=== PATIENT | male | born 1955 | race Caucasian/White ===

== ENCOUNTER 2019-03-08 14:13 | Outpatient (CLI) | payer MEDICARE, OTHER, SELFPAY ==
--- NOTE | 2019-03-08 14:31 | USCV_ITS ---
Chau Castillo Age: 63 Gender: M : 1955 Exam Date: 03/08/2019 14:33 Ordering Phys: Riki Villarreal DPM Technologist: Liya Almazan [place] [facility] [place]: HISTORY: PROCEDURES: Comparison: none available. Bilateral duplex Venous Insufficiency study of the Deep and Superficial systems was carried out according to normal protocol with the patient in supine positon for deep system and dependent position for the superficial system. Serial compression, augmentation maneuvers, and spectral Doppler flow evaluation were performed. An evaluation for venous insufficiency was also completed. FINDINGS: Evidence of very mild reflux in the deep system only, femoral vein on the right, and common femoral vein on the left. CONCLUSIONS 1. Significant venous reflux of greater than 1000 ms was noted in the right femoral vein and the left common femoral veins 2. No significant venous reflux in the superficial venous system 3. The venous dimensions and depth from the surface are as mentioned above Dr Kris Allen MD [facility] (Electronically Signed) Final Date: 08 March 2019 20:27 S
== END 2019-03-08 14:14 | disposition home or self-care (01) ==
LOC: RAD 14:24
PROVIDERS: Family Provider Nurse Practitioner; PCP Nurse Practitioner; Visit Provider Podiatrist Foot & Ankle Surgery
DX: B35.1 Tinea unguium (principal); I87.2 Venous insufficiency (chronic) (peripheral)
CPT/HCPCS: 93970

== ENCOUNTER 2019-03-15 12:35 | Outpatient (CLI) | payer MEDICARE, OTHER, SELFPAY ==
--- NOTE | 2019-03-15 12:39 | USCV_ITS ---
Chau Castillo Age: 63 Gender: M : 1955 Exam Date: 03/15/2019 12:39 Ordering Phys: Riki Villarreal DPM Technologist: Liya Almazan Exam Location: [facility] – [place] Indication: ONYCHOMYCOSIS OF TOENAIL RIGHT LEFT Brachial 120.00 mmHg Brachial 105.00 mmHg Pressure (mmHg) Waveform Pressure (mmHg) Waveform 124.00 Above Knee 136.00 132.00 Below Knee 152.00 144.00 DESK EDITOR 135.00 125.00 DPA 128.00 1.20 Ankle/Brachial Index 1.13 114.00 Pre-Exercise Toe Pressure 96.00 Pre-Exercise Toe/Brachial Index 0.80 0.95 FINDINGS See measurements listed above. Normal resting ABIs bilaterally Normal resting TBIs bilaterally Normal PVR waveforms bilaterally CONCLUSIONS No significant arterial obstruction, based on the above findings Dr Kris Allen MD [facility] (Electronically Signed) Final Date: 17 March 2019 15:08 S
== END 2019-03-15 12:36 | disposition home or self-care (01) ==
PROVIDERS: Family Provider Nurse Practitioner; PCP Nurse Practitioner; Visit Provider Podiatrist Foot & Ankle Surgery
DX: B35.1 Tinea unguium (principal)
CPT/HCPCS: 93923

== ENCOUNTER → 2020-02-04 13:30 | Outpatient (BNVA) | payer OTHER, MEDICARE, SELFPAY | PROVIDERS: Family Provider Nurse Practitioner; PCP Nurse Practitioner; Visit Provider Internal Medicine | DX: Z01.812 Encounter for preprocedural laboratory examination (principal); Z20.828 Contact with and (suspected) exposure to other viral communicable diseases | CPT/HCPCS: 87635 ==

== ENCOUNTER 2020-02-08 08:04 | Day surgery (SDC) | payer OTHER, SELFPAY ==
[2020-02-05 13:40] VITALS: BMI 24.8
[2020-02-08 08:30] VITALS: BP 129/72; PULSE 67; RESP 18; TEMP 36.5; O2SAT 99
[2020-02-08] MEDS: sodium chloride 0.9% 1,000 ML 30 ML IV (08:43)
--- NOTE | 2020-02-08 09:02 | ANES.PREANE2 ---
Pre-Anesthetic Assessment Pre-Anesthetic Assessment: Height/Weight: Height 1.78 m Weight 78.471 kg Temp Pulse Resp BP Pulse Ox 97.7 F 67 18 129/72 99 02/08/20 08:30 02/08/20 08:30 02/08/20 08:30 02/08/20 08:30 02/08/20 08:30 Preop Diagnosis: d Proposed Procedure: Operation Date: 02/08/20 09:00 Proposed Procedures p EGD/Colon 52423 08358 R13.10(Not Applicable) - Jorge Briscoe MD s Colonoscopy(Not Applicable) - Jorge Briscoe MD Was Beta Jovany taken within 24 hours: N/A Last intake: Intake Last Liquid Date 02/07/20 Last Liquid Time 22:00 Last Solid Date 02/06/20 Last Solid Time 21:00 Social: Social History: No alcohol and No tobacco Exam: Pre-Anes Outpt Exam: alert, oriented x 3, clear to auscultation bilaterally and regular rate & rhythm Airway: Submandibular: WNL Cervical ROM: WNL MP: 2 Dentition: False Pulmonary: Pulmonary: None reported CV/HEM: CV/HEM: None reported : : None reported Hepatic: Hepatic: None reported GI: GI: None reported Metabolic: Metabolic: None reported Musc/skel: Musc/skel: Weakness Anesthetic Plan: ASA status: 2 Anesthesia: MAC Meds/Allergies Current Medications: Current Medications Generic Name Dose Route Start Last Admin Trade Name Freq PRN Reason Stop Dose Admin Sodium Chloride 1,000 mls @ 30 ml s/hr 02/08/20 08:30 02/08/20 08:43 Sodium Chloride 0.9% IV 02/09/20 08:29 30 mls/hr .Q24H TRISTAN Administration PFSH Anesthesia PFSH: Medical History (Updated 01/29/20 @ 09:35 by Jorge Briscoe MD) DJD (degenerative joint disease) Hiatal hernia Social History Smoking and tobacco status: never smoked Alcohol intake: never Data Anesthesia Cardiac Studies: No Data to Display
--- NOTE | 2020-02-08 09:17 | W.PM.OPSUD ---
Surgery/Procedure H&P Update DATE OF PROCEDURE: February 08, 2020 DATE H&P PERFORMED: 01/29/20 PREOP DIAGNOSIS: d PLANNED PROCEDURE: Operation Date: 02/08/20 09:00 Proposed Procedures p EGD/Colon 60261 48421 R13.10(Not Applicable) - Jorge Briscoe MD s Colonoscopy(Not Applicable) - Jorge Briscoe MD
[2020-02-08 09:43] VITALS: BP 101/67; PULSE 63; RESP 18; TEMP 36.3; O2SAT 97
[2020-02-08 10:01] VITALS: BP 94/58; PULSE 59; RESP 18; O2SAT 98
--- NOTE | 2020-02-08 10:20 | ANE.PACU2 ---
Inpatient post-anesthesia follow up: Airway intact: Yes Vital signs: Temperature 97.3 F Pulse Rate 59 Respiratory Rate 18 Blood Pressure 94/58 Pulse Oximetry 98 Oxygen Delivery Me thod Room Air Oxygen Flow Rate Fraction of Inspir ed Oxygen Hydration adequate: Yes Nausea and vomiting: No Pain level: 1 Mental status: Baseline
[2020-02-11 06:43] LABS: H. Pylori / CLO Test Negative
== END 2020-02-08 10:20 | disposition home or self-care (01) ==
PROVIDERS: PCP Nurse Practitioner; Visit Provider Internal Medicine
PROC: 0DJ08ZZ Inspection of Upper Intestinal Tract, Via Natural or Artificial Opening Endoscopic (ICD-10-PCS; CPT 43235; principal; 2020-02-08 09:00)
PROC: 0DJD8ZZ Inspection of Lower Intestinal Tract, Via Natural or Artificial Opening Endoscopic (ICD-10-PCS; CPT 45378; 2020-02-08 09:00)
DX: Z86.010 Personal history of colon polyps (principal); R13.10 Dysphagia, unspecified; K29.70 Gastritis, unspecified, without bleeding; M19.90 Unspecified osteoarthritis, unspecified site
CPT/HCPCS: 12345; 43239; 45378; 87077; J2704; J7030

== ENCOUNTER → 2020-08-29 11:49 | Outpatient (BNVA) | payer MEDICARE, OTHER, SELFPAY | PROVIDERS: PCP Nurse Practitioner; Visit Provider Nurse Practitioner Family | DX: R10.31 Right lower quadrant pain (principal); K57.92 Diverticulitis of intestine, part unspecified, without perforation or abscess without bleeding; R10.32 Left lower quadrant pain | CPT/HCPCS: 80053; 81000; 85025 ==

== ENCOUNTER 2020-09-17 11:01 | Outpatient (CLI) | payer MEDICARE, OTHER, SELFPAY ==
[2020-09-17] MEDS: iohexol 300 mg/mL 50 mL Btl PO (11:36)
[2020-09-17] MEDS: iohexol 300 mg/mL 100 mL Btl IV (12:55)
--- NOTE | 2020-09-17 13:00 | CT_ITS ---
WS: [id number] CT ABDOMEN AND PELVIS WITH CONTRAST HISTORY: R10.31 - Right lower quadrant pain TECHNIQUE: Imaging performed of the abdomen and pelvis with IV contrast. Single phase imaging of the abdomen. Coronal and sagittal reformats are submitted. All CT scans at [facility] use at least one of these dose optimization techniques: automated exposure control; mA and/or kV adjustment per patient size (includes targeted exams where dose is matched to clinical indication); or iterativ e reconstruction. IV CONTRAST: Omnipaque 300; 95 mL IV. Oral contrast: Yes. DLP: 1145.57 mGycm COMPARISON: 07/19/2008 Lower thorax: Scattered irregular opacifications at the lung bases. Greatest at the RIGHT lung base. Normal size. Small hiatal hernia. Liver/biliary system: Normal size with no intrahepatic dilatation. Gallbladder: Normally distended gallbladder. Mild heterogeneity within the lumen of the gallbladder c onsistent with stones. Pancreas: Normal size pancreas and pancreatic duct. No adjacent inflammation. Spleen: Normal size spleen. No mass or infarct. Adrenal glands: Normal. Right kidney: Normal. Left kidney: Normal. Aorta: Mild atherosclerosis with no aneurysm. Lymphadenopathy: None. Free fluid: None. GI tract: Normal appendix. There is some very mild increased soft tissue thickening at the cecum whic h appears to be fecal material. No mass or obstruction. Abdominal wall: Unremarkable abdominal wall. No hernia. Pelvis: No free fluid or adenopathy within the pelvis. Bones: Unremarkable. CT/CT abdomen pelvis w con* [id number] IMPRESSION: 1. Bibasilar opacifications most consistent with pneumonitis and history of Co vid 19. 2. Variable density in the gallbladder lumen is most consistent with cholelith iasis. No evidence for acute cholecystitis. To confirm cholelithiasis consider follow-up ultrasound RIGHT upper quadrant. 3. Normal appendix. 4. No adenopathy or ascites.
== END 2020-09-17 11:02 | disposition home or self-care (01) ==
PROVIDERS: PCP Nurse Practitioner; Visit Provider Nurse Practitioner Family
DX: R10.31 Right lower quadrant pain (principal); R10.32 Left lower quadrant pain
CPT/HCPCS: 74177; Q9967

== ENCOUNTER 2020-11-19 07:06 | Outpatient (CLI) | payer MEDICARE, OTHER, SELFPAY ==
--- NOTE | 2020-11-19 07:15 | US_ITS ---
WS: [id number] RIGHT UPPER QUADRANT ULTRASOUND HISTORY: R10.9 - Unspecified abdominal pain COMPARISON: None available. Liver: 14.2 cm in length. Normal size liver. Very mildly coarsened echotexture throughout the liver. No mass or bile duct dilatation. Gallbladder: Normally distended gallbladder with stones. Largest stone measures 1.3 cm in diameter. N o pericholecystic fluid or gallbladder wall thickening. CBD: 0.4 cm Pancreas: Normal size and echogenicity. Right kidney: 11.8 cm in length. Normal size and echogenicity. No hydronephrosis or mass. Aorta and IVC: Unremarkable abdominal aorta and IVC. No ascites. US/US gall bladder [id number] IMPRESSION: 1. Cholelithiasis without acute cholecystitis. 2. Mild hepatic steatosis.
== END 2020-11-19 07:07 | disposition home or self-care (01) ==
LOC: US 07:08
PROVIDERS: PCP Nurse Practitioner; Visit Provider Nurse Practitioner Family
DX: R10.9 Unspecified abdominal pain (principal); K80.20 Calculus of gallbladder without cholecystitis without obstruction; K76.0 Fatty (change of) liver, not elsewhere classified
CPT/HCPCS: 76705

== ENCOUNTER → 2022-07-29 14:35 | Outpatient (BNVA) | payer MEDICARE, OTHER, SELFPAY | PROVIDERS: PCP Nurse Practitioner; Visit Provider Nurse Practitioner Family | DX: M25.511 Pain in right shoulder (principal) | CPT/HCPCS: 73030 ==

== ENCOUNTER 2022-08-26 10:42 | Outpatient (CLI) | payer MEDICARE, OTHER, SELFPAY ==
--- NOTE | 2022-08-26 11:00 | MR_ITS ---
WS: [id number] MRI RIGHT SHOULDER HISTORY: RIGHT shoulder pain, limited range of motion. COMPARISON: 07/29/2022 TECHNIQUE: Multiplanar sequences of the shoulder joint are submitted. Moderate AC joint hypertrophy. Distal clavicular osteophytes and acromial osteophytes encroaching upo n the supraspinatus myotendinous insertion. Mild subacromial impingement by an osteophyte. There is a small amount of fluid in the subacromial and subdeltoid bursa. No os acromion. Normal biceps tendon. Very slightly high riding humeral head. No muscle atrophy or edema. No rotator cuff tear. No labral t ear. MR/MR shoulder RT wo con* [id number] IMPRESSION: 1. Moderate AC joint arthritis with mild encroachment upon the myotendinous in sertion of the supraspinatus. 2. Mild subacromial impingement upon the supraspinatus by osteophyte. 3. No rotator cuff tear.
== END 2022-08-26 10:43 | disposition home or self-care (01) ==
LOC: RAD 10:42
PROVIDERS: PCP Nurse Practitioner; Visit Provider Nurse Practitioner Family
DX: M19.011 Primary osteoarthritis, right shoulder (principal); M25.711 Osteophyte, right shoulder
CPT/HCPCS: 73221

== ENCOUNTER → 2022-10-19 07:51 | Outpatient (BNVA) | payer MEDICARE, OTHER, SELFPAY | PROVIDERS: PCP Nurse Practitioner; Referring Provider Nurse Practitioner Family; Visit Provider Student in an Organized Health Care Education/Training Program | DX: M75.41 Impingement syndrome of right shoulder (principal) | CPT/HCPCS: 20610; 99204; J3301 ==

== ENCOUNTER 2022-11-15 06:00 | Outpatient (RCR) | payer MEDICARE, OTHER, SELFPAY | END 2022-12-04 23:59 | disposition home or self-care (01) | LOC: TPT 06:00 | PROVIDERS: Visit Provider Student in an Organized Health Care Education/Training Program | DX: M75.41 Impingement syndrome of right shoulder (principal) | CPT/HCPCS: 97110; 97140; 97162 ==

== ENCOUNTER 2022-12-05 06:00 | Outpatient (RCR) | payer MEDICARE, OTHER, SELFPAY | END 2023-01-04 23:59 | disposition home or self-care (01) | LOC: TPT 06:00 | PROVIDERS: PCP Nurse Practitioner; Visit Provider Student in an Organized Health Care Education/Training Program | DX: M75.41 Impingement syndrome of right shoulder (principal) | CPT/HCPCS: 97110 ==

== ENCOUNTER → 2022-12-16 09:46 | Outpatient (BNVA) | payer MEDICARE, OTHER, SELFPAY | PROVIDERS: PCP Nurse Practitioner; Visit Provider Physician Assistant | DX: M75.41 Impingement syndrome of right shoulder (principal); M19.011 Primary osteoarthritis, right shoulder | CPT/HCPCS: 99213 ==

== ENCOUNTER → 2023-01-15 12:38 | Outpatient (BNVA) | payer MEDICARE, OTHER, SELFPAY | PROVIDERS: PCP Nurse Practitioner; Visit Provider Nurse Practitioner | DX: M79.602 Pain in left arm (principal); S50.12XA Contusion of left forearm, initial encounter; S60.212A Contusion of left wrist, initial encounter; W19.XXXA Unspecified fall, initial encounter | CPT/HCPCS: 73090; 73110 ==

== ENCOUNTER → 2023-02-01 09:02 | Outpatient (BNVA) | payer MEDICARE, OTHER, SELFPAY | PROVIDERS: PCP Nurse Practitioner; Visit Provider Physician Assistant | DX: M75.41 Impingement syndrome of right shoulder (principal); M19.011 Primary osteoarthritis, right shoulder | CPT/HCPCS: 99213 ==

== ENCOUNTER → 2023-02-11 11:03 | Outpatient (BNVA) | payer MEDICARE, OTHER, SELFPAY | PROVIDERS: PCP Nurse Practitioner; Visit Provider Registered Nurse Neonatal Intensive Care | DX: S93.401A Sprain of unspecified ligament of right ankle, initial encounter (principal); W19.XXXA Unspecified fall, initial encounter | CPT/HCPCS: 73610 ==

== ENCOUNTER → 2023-05-11 12:57 | Outpatient (BNVA) | payer MEDICARE, OTHER, SELFPAY | PROVIDERS: PCP Nurse Practitioner; Referring Provider Nurse Practitioner Family; Visit Provider Dermatology | DX: D48.5 Neoplasm of uncertain behavior of skin (principal); L24.9 Irritant contact dermatitis, unspecified cause; L30.4 Erythema intertrigo; L57.0 Actinic keratosis; L81.4 Other melanin hyperpigmentation; D18.01 Hemangioma of skin and subcutaneous tissue | CPT/HCPCS: 11102; 17000; 99204 ==

== ENCOUNTER → 2023-05-31 11:05 | Outpatient (BNVA) | payer MEDICARE, OTHER, SELFPAY | PROVIDERS: PCP Nurse Practitioner; Visit Provider Dermatology | DX: D04.39 Carcinoma in situ of skin of other parts of face (principal); L82.0 Inflamed seborrheic keratosis; L30.0 Nummular dermatitis | CPT/HCPCS: 17110; 17282; 99213 ==

== ENCOUNTER → 2023-12-01 14:05 | Outpatient (BNVA) | payer OTHER, SELFPAY | PROVIDERS: PCP Nurse Practitioner; Visit Provider Nurse Practitioner Family | DX: L57.0 Actinic keratosis (principal); L82.0 Inflamed seborrheic keratosis; L60.3 Nail dystrophy; L30.0 Nummular dermatitis; L81.4 Other melanin hyperpigmentation; Z86.007 Personal history of in-situ neoplasm of skin | CPT/HCPCS: 17000; 17110; 99213 ==

== ENCOUNTER 2023-12-16 07:48 | Outpatient (CLI) | payer OTHER, SELFPAY ==
--- NOTE | 2023-12-16 | ECG_ITS ---
[facility]io Test Date: 2023-12-16 Pat Name: Chau Castillo Department: Room: Gender: Male Loading Inspector: : 1955 Requested By: Diann Wilson Order Number: [id number] Billy MD: Jeevan Linares M.D. Interpretive Statements Exercise MIBI stress test EXERCISE DATA: The patient was exercised by Harish protocol. Baseline heart rate was 77beats per minute. Baseline blood pressure lbt015/83 millimeters of mercury. Maximal predicted heart rate ltx685 beats per minute. Maximum heart rate achieved was 143 which was 92% of the maximum predicted heart rate. Maximum blood pressure was 187/75 millimeters of mercury. Total exercise time was 8 minutes and 15 seconds. Maximum METs achieved was 10.2. The reason for ending the test was Maximal effort achieved. The patient complained of shortness of breath during the stress test, which then resolved at the end of the test. ELECTROCARDIOGRAM: BASELINE: Showed sinus rhythm, normal axis, no significant ST-T changes at the baseline noted.PVCs were seen [] EXERCISE: At the peak exercise level, [] No significant ST-T changes suggestive of ischemia noted. [] RECOVERY: During the recovery period, heart rate dropped appropriately. No significant ST-T changes in the recovery suggestive of ischemia noted. [] CONCLUSION: 1. Exercise capacity is good 2. Heart rate response was appropriate. 3. Blood pressure response was appropriate. 4. Symptoms not suggestive of ischemia. 5. Electrocardiogram portion of the stress test was not suggestive of ischemia. 6. Nuclear scan will be documented separately. Electronically Signed On 12-16-2023 19:38:09 CDT by Jeevan Linares M.D. [email or web address]
[2023-12-16 08:10] VITALS: BMI 24.7
--- NOTE | 2023-12-16 08:11 | NMCV_ITS ---
NM stephen perf SPECT r/s* [id number] Chau Castillo Age: 68 Gender: M : 1955 Exam Date: 12/16/2023 08:11 Ordering Phys: Diann Wilson MD Technologist: FRANKLYN Mason Exam Location: [facility] Indications: CP STRESS TEST Please see separate stress test report in [facility] for full findings IMAGE PROTOCOL Rest/Stress 1 Exercise Day Radiopharmaceutical Dose (mCi) Administration Site Administered by Rest: Tc-99m 10.8 IV FRANKLYN Gutierrez Sestamibi Stress:Tc-99m 32.4 IV FRANKLYN Coronado Sestamibi Rest: 16-Dec-2023 60 Discovery 630 Stress: 16-Dec-2023 30 Discovery 630 Radiopharmaceutical was injected at 85 % maximum heart rate. Images obtained in supine and prone position. SPECT RESULTS Technical Quality: Good Raw Data Analysis: Normal Image Corrections: No attenuation or motion correction applied Summed Stress Score: 0 Summed Rest Score: 0 Summed Difference Score: 0 PERFUSION FINDINGS Medium sized area of fixed perfusion defect noted in basal to mid inferior wall on both stress and rest images, in the absence of wall motion abnormality it could be attenuation artifact. FUNCTIONAL RESULTS (calculated via Gated SPECT) Stress Image LV EF (%): 82 Stress EDV (mL):82 TID: 0.8 Stress ESV (mL):15 FUNCTIONAL FINDINGS: There is normal left ventricular systolic function. IMPRESSIONS This study is negative for ischemia. EKG segment will be documented separately. Faye Milner MD (Electronically Signed) Final Date: 16 December 2023 12:01 S
[2023-12-16 10:00] VITALS: BP 148/73; PULSE 85
== END 2023-12-16 07:49 | disposition home or self-care (01) ==
PROVIDERS: PCP Nurse Practitioner; Visit Provider Family Medicine
DX: R07.9 Chest pain, unspecified (principal)
CPT/HCPCS: 36415; 78452; 93017; 96374; A9500

== ENCOUNTER 2023-12-21 07:06 | Outpatient (CLI) | payer OTHER, SELFPAY ==
--- NOTE | 2023-12-21 07:13 | US_ITS ---
WS: [id number] RIGHT UPPER QUADRANT ULTRASOUND HISTORY: Epigastric Pain COMPARISON: 11/19/2020 Liver: 16.1 cm in length. Normal size liver and echogenicity. No bile duct dilatation or mass. Portal Vein: Normal hepatopetal flow with monophasic waveform. Gallbladder: Normally distended gallbladder. Numerous stones are present in the gallbladder. No wall thickening or pericholecystic fluid. CBD: 0.4 cm Pancreas: Obscured by bowel gas. Small portion of the body is identified and normal. Right kidney: 10.6 cm in length. Normal size and echogenicity. No hydronephrosis or mass. Aorta and IVC: Unremarkable abdominal aorta and IVC. No ascites. US/US abdomen limited [id number] IMPRESSION: 1. Cholelithiasis without acute cholecystitis. 2. Negative liver.
== END 2023-12-21 07:07 | disposition home or self-care (01) ==
LOC: RAD 07:07
PROVIDERS: PCP Nurse Practitioner; Visit Provider Family Medicine
DX: K80.20 Calculus of gallbladder without cholecystitis without obstruction (principal)
CPT/HCPCS: 76705

== ENCOUNTER → 2024-02-20 13:15 | Outpatient (BNVA) | payer MEDICARE, OTHER, SELFPAY | PROVIDERS: PCP Nurse Practitioner; Visit Provider Podiatrist Foot & Ankle Surgery | DX: L60.3 Nail dystrophy (principal) | CPT/HCPCS: 99203 ==

== ENCOUNTER → 2024-03-08 08:30 | Outpatient (BNVA) | payer MEDICARE, OTHER, SELFPAY | PROVIDERS: PCP Nurse Practitioner; Visit Provider Podiatrist Foot & Ankle Surgery | DX: L60.3 Nail dystrophy (principal) | CPT/HCPCS: 11750 ==

== ENCOUNTER → 2024-03-29 08:05 | Outpatient (BNVA) | payer MEDICARE, OTHER, SELFPAY | PROVIDERS: PCP Nurse Practitioner; Visit Provider Podiatrist Foot & Ankle Surgery | DX: L60.3 Nail dystrophy (principal); L60.0 Ingrowing nail | CPT/HCPCS: 11750 ==

== ENCOUNTER → 2024-05-30 13:12 | Outpatient (BNVA) | payer MEDICARE, OTHER, SELFPAY | PROVIDERS: PCP Nurse Practitioner; Visit Provider Nurse Practitioner Family | DX: L30.0 Nummular dermatitis (principal); L81.4 Other melanin hyperpigmentation; L28.0 Lichen simplex chronicus; Z86.007 Personal history of in-situ neoplasm of skin; L57.0 Actinic keratosis | CPT/HCPCS: 17000; 99213 ==

== ENCOUNTER → 2024-06-22 08:38 | Outpatient (BNVA) | payer MEDICARE, OTHER, SELFPAY | PROVIDERS: PCP Nurse Practitioner; Visit Provider Nurse Practitioner Family | DX: L21.8 Other seborrheic dermatitis (principal); Z08 Encounter for follow-up examination after completed treatment for malignant neoplasm; Z86.007 Personal history of in-situ neoplasm of skin; L82.0 Inflamed seborrheic keratosis; L29.89 Other pruritus; L53.8 Other specified erythematous conditions; Z78.9 Other specified health status; R20.8 Other disturbances of skin sensation; L57.0 Actinic keratosis | CPT/HCPCS: 17000; 17110; 99214 ==

== ENCOUNTER → 2024-11-28 11:01 | Outpatient (BNVA) | payer OTHER, SELFPAY | PROVIDERS: PCP Nurse Practitioner; Visit Provider Nurse Practitioner Family | DX: L21.8 Other seborrheic dermatitis (principal); L82.1 Other seborrheic keratosis; L81.4 Other melanin hyperpigmentation; L57.8 Other skin changes due to chronic exposure to nonionizing radiation; L57.0 Actinic keratosis | CPT/HCPCS: 17000; 99214 ==